=== PATIENT | male | born 1975 | race African-American/Black ===

== ENCOUNTER 2020-10-09 10:39 | Emergency (ER) | payer BC ==
[~2020-10-09] VITALS: Ht 185.4 cm; Wt 159.0 kg
[2020-10-09 10:45] VITALS: BP 158/87
[2020-10-09] MEDS ORDERED: LIDOCAINE 1% Multi-Dose 20 ML VIAL. INJ ONE (12:45)
[2020-10-09] MEDS ORDERED: HYDROcodone/APAP 5/325MG 1 TAB TABLET PO ONE (12:45)
[2020-10-09] MEDS ORDERED: DIPH,PERTUSS(ACELL),TET VAC/PF 0.5 ML SYRINGE. VAX IM ONE (13:00)
--- NOTE | 2020-10-09 13:18 | RAD ---
EXAM: XR RT TIBIA+FIBULA 10/09/2020 12:37 PM CLINICAL INDICATION: Lateral lower leg laceration COMPARISON: None TECHNIQUE: 2 views of the right tibia and fibula FINDINGS: No acute fracture. Alignment is normal. Probable bandages along the lateral mid to distal femoral diaphysis. No radiopaque foreign body. Talar dome is intact. There is a small corticated ossi domo anterior to the tibiotalar joint, nonspecific. Achilles insertional enthesophyte noted. Mild dege nerative joint disease of the medial compartment of the knee. IMPRESSION: No acute osseous abnormality or radiopaque foreign body. Electronically signed by: Ingris Domínguez MD (10/09/2020 1:15 PM) [id number]
--- NOTE | 2020-10-09 13:30 | PHYS DOC ---
Past Medical History Past Medical History: High Cholesterol, Hypertension Past Surgical History: No Surgical History Smoking Status: Never Smoker Alcohol Use: Occasionally Drug Use: None General Adult EDM: Chief Complaint: LACERATION/AVULSION HPI: HPI: Patient is a 45 year old male who presents with right lateral lower leg laceration caused by glass that broke through the trash bag he is carrying. He denies any pain. Patient has a history of high cholesterol and hypertension. Review of Systems: Review of Systems: Constitutional: Denies fever or chills. [] Eyes: Denies change in visual acuity. [] HENT: Denies nasal congestion or sore throat. [] Respiratory: Denies cough or shortness of breath. [] Cardiovascular: Denies chest pain or edema. [] GI: Denies abdominal pain, nausea, vomiting, bloody stools or diarrhea. [] : Denies dysuria. [] Musculoskeletal: Denies back pain or joint pain. [] Integument: Denies rash. + Right lateral leg laceration [] Neurologic: Denies headache, focal weakness or sensory changes. [] Endocrine: Denies polyuria or polydipsia. [] Lymphatic: Denies swollen glands. [] Psychiatric: Denies depression or anxiety. [] Heart Score: C/O Chest Pain: No Risk Factors: Risk Factors: DM, Current or recent (<one month) smoker, HTN, HLP, family history of CAD, obesity. Risk Scores: Score 0 - 3: 2.5% MACE over next 6 weeks - Discharge Home Score 4 - 6: 20.3% MACE over next 6 weeks - Admit for Clinical Observation Score 7 - 10: 72.7% MACE over next 6 weeks - Early Invasive Strategies Current Medications: Current Medications Medications (Trade) Dose Ordered Sig/Virginie Start Time Stop Time Status Last Admin Dose Admin Acetaminophen/ Hydrocodone Bitart (Lortab 5/325) 1 tab 1X ONCE 10/09/20 12:45 10/09/20 12:46 DC 10/09/20 12:59 1 TAB Diphtheria/ Tetanus/Acell Pertussis (ADACEL TDap SYRINGE) 0.5 ml ONCE ONCE 10/09/20 13:00 10/09/20 13:01 DC 10/09/20 13:00 0.5 ML Lidocaine HCl (Lidocaine 1% 20ml Vial) 20 ml 1X ONCE 10/09/20 12:45 10/09/20 12:46 DC 10/09/20 12:59 20 ML Allergies: Allergies: Allergies Coded Allergies Type Severity Reaction Last Updated Verified No Known Drug Allergies 07/25/15 No Physical Exam: PE: Constitutional: Well developed, well nourished, no acute distress, non-toxic appearance. [] HENT: Normocephalic, atraumatic, bilateral external ears normal, oropharynx moist, no oral exudates, nose normal. [] Eyes: PERRLA, EOMI, conjunctiva normal, no discharge. [] Neck: Normal range of motion, no tenderness, supple, no stridor. [] Cardiovascular:Heart rate regular rhythm, no murmur [] Lungs & Thorax: Bilateral breath sounds clear to auscultation [] Abdomen: Bowel sounds normal, soft, no tenderness, no masses, no pulsatile masses. [] Skin: Warm, dry, no erythema, no rash. 4 inch right lateral lower leg laceration [] Back: No tenderness, no CVA tenderness. [] Extremities: No tenderness, no cyanosis, no clubbing, ROM intact, no edema. [] Neurologic: Alert and oriented X 3, normal motor function, normal sensory function, no focal deficits noted. [] Psychologic: Affect normal, judgement normal, mood normal. [] Current Patient Data: Vital Signs: Vital Signs Date Time Temp Pulse Resp B/P (MAP) Pulse Ox O2 Delivery O2 Flow Rate FiO2 10/09/20 12:59 16 99 Room Air 10/09/20 10:45 98.8 87 158/87 (110) 98.8 EKG: EKG: [] Radiology/Procedures: Radiology/Procedures: [] Impression: [facility] [address] [place], [place] [id number] IMAGING REPORT Signed PATIENT: ROJELIO SARMIENTO ACCOUNT: [id number] : 1975 LOCATION: ER AGE: 45 SEX: M EXAM STATUS: REG ER ORD. PHYSICIAN: JENNIFER MARKHAM APRN REASON: lateral lower leg laceration PROCEDURE: TIBIA FIBULA RIGHT EXAM: XR RT TIBIA+FIBULA 10/09/2020 12:37 PM CLINICAL INDICATION: Lateral lower leg laceration COMPARISON: None TECHNIQUE: 2 views of the right tibia and fibula FINDINGS: No acute fracture. Alignment is normal. Probable bandages along the lateral mid to distal femoral diaphysis. No radiopaque foreign body. Talar dome is intact. There is a small corticated ossicle anterior to the tibiotalar joint, nonspecific. Achilles insertional enthesophyte noted. Mild degenerative joint disease of the medial compartment of the knee. IMPRESSION: No acute osseous abnormality or radiopaque foreign body. Electronically signed by: Ingris Domínguez MD (10/09/2020 1:15 PM) [id number] DICTATED and SIGNED BY: INGRIS DOMÍNGUEZ MD DATE: 10/09/20 [id number] 0 Course & Med Decision Making: Course & Med Decision Making Pertinent Labs and Imaging studies reviewed. (See chart for details) See HPI. Alert and oriented x4. Ambulatory with a steady gait. Full range of motion of the right ankle and can wiggle his toes. No foreign body seen. Patient is given a tetanus shot. Pedal pulses strong and present. Cap refill is less than 2 seconds. Skin [place] warm and dry. Sensations intact. Laceration repair Location: Right lateral lower leg approximately 4 inches Local anesthesia: 1% lidocaine Interrupted sutures/Internal sutures: 3-0 and 8 stitches Nerve/ligament/muscle damage: None Cleaning and irrigation: Chlorhexidine and saline The appropriate timeout was taken. The area was prepped and draped in the usual sterile fashion. The wound was copiously irrigated with normal saline and chlorhexidine. Patient tolerated well without complication. Dressing was applied to the area follow-up education is given to observe for signs and symptoms of infection, bleeding and to follow-up promptly if these occur. Patient can return in 48 hours for a wound recheck. Sutures to be removed in 7 to 10 days. [] Mariahon Disclaimer: Nitesh Disclaimer: This electronic medical record was generated, in whole or in part, using a voice recognition dictation system. Departure Departure Impression: Primary Impression: Laceration Disposition: HOME / SELF CARE / HOMELESS Condition: STABLE Referrals: UNKNOWN PCP NAME (PCP) Patient Instructions: Laceration Care, Adult Additional Instructions: Follow-up with your primary care provider or he can return here in 10 days to have sutures removed. Keep it clean and covered. Watch for signs of infection. Take Tylenol or ibuprofen for any pain. JENNIFER MARKHAM APRN October 09, 2020 13:30
== END 2020-10-09 13:43 | disposition home or self-care (01) ==
LOC: ER 10:39
DX: S81.811A Laceration without foreign body, right lower leg, initial encounter (principal); E78.00 Pure hypercholesterolemia, unspecified; I10 Essential (primary) hypertension; Y28.0XXA Contact with sharp glass, undetermined intent, initial encounter; Y92.89 Other specified places as the place of occurrence of the external cause; Y93.89 Activity, other specified; Y99.8 Other external cause status
CPT/HCPCS: 12004; 73590; 90471; 90715; 99283; J3490